=== PATIENT | female | born 1990 | race Caucasian/White ===

== ENCOUNTER 2020-10-31 15:28 | Emergency (ER) | payer SELFPAY ==
[~2020-10-31] VITALS: Ht 170.2 cm; Wt 93.2 kg
[2020-10-31 17:52] LABS: BILIRUBIN,URINE SMALL (NEG); CLARITY,URINE TURBID; NITRITE,URINE NEGATIVE (NEG); PROTEIN,URINE 30 mg/dL (NEG-TRACE)
[2020-10-31 17:57] LABS: COLOR,URINE YELLOW
[2020-10-31 17:58] LABS: BACTERIA,URINE MANY /HPF (0-FEW); WBC,URINE >40 /HPF (0-4)
[2020-10-31 18:01] LABS: YEAST,URINE PRESENT /HPF
--- NOTE | 2020-10-31 18:12 | ED.ADGEN ---
Past Medical History Past Medical History: Anxiety, Depression, Schizophrenia Past Surgical History: No Surgical History Smoking Status: Current Every Day Smoker Alcohol Use: Occasionally Drug Use: None General Adult EDM: Chief Complaint: MULTIPLE COMPLAINTS HPI: HPI: Patient is a 30 year old female who presents to emergency department with complaints of right hand pain after she punched a wall today because she was angry, and foul-smelling vaginal discharge with concerns of a sexually transmitted infection. Patient states that the vaginal discharge and odor began a few weeks ago. She denies any abdominal pain, fever, cough, shortness of breath, nausea, vomiting, diarrhea, constipation, dysuria, hematuria, increased urinary frequency. Patient denies numbness, tingling, weakness or decreased range of motion of the right hand, she is dominantly right-handed. Patient reports a history of schizophrenia, depression, and anxiety. She states that she was upset with her mother that is why she punched a wall. She denies any suicidal or homicidal ideations. She currently rates her pain a 4 out of 10 on the pain scale, she denies any alleviating factors, pain is worse with palpation and movement. Review of Systems: Review of Systems: Complete ROS is negative unless otherwise noted in HPI. Current Medications: Current Medications Medications (Trade) Dose Ordered Sig/Deepika Start Time Stop Time Status Last Admin Dose Admin Ceftriaxone Sodium (Rocephin Im) 500 mg 1X ONCE 10/31/20 18:30 10/31/20 18:31 DC 10/31/20 18:34 500 MG Allergies: Allergies: Allergies Coded Allergies Type Severity Reaction Last Updated Verified Penicillins Allergy Intermediate Unknown 10/31/20 Yes Physical Exam: PE: See Above Constitutional: Well developed, well nourished, no acute distress, non-toxic appearance. HENT: Normocephalic, atraumatic, bilateral external ears normal, nose normal. Eyes: PERRLA, EOMI, conjunctiva normal, no discharge. Neck: Normal range of motion, no stridor. Cardiovascular: Heart rate regular rhythm Lungs & Thorax: Respirations even and unlabored, no retractions, no respiratory distress Pelvic Exam: Toxicologist present Evelina NOVAK Abdomen: Nontender, soft External Genitalia: Normal Skin Speculum: Normal vaginal mucosa, purulent cervical discharge with strawberry appearance, cervix is friable Bimanual: No adnexal masses or tenderness, No CMT Skin: Warm, dry, no erythema, no rash. Extremities: Right hand: Bruising and 1+ edema to lateral aspect of dorsal surface, no crepitus, no obvious deformity, sensation intact, no cyanosis, ROM intact, no edema. Neurologic: Alert and oriented X 3, no focal deficits noted. Psychologic: Affect normal, judgement normal, mood normal. Current Patient Data: Labs: Laboratory Tests Test 10/31/20 17:45 10/31/20 17:49 Urine Collection Type Unknown Urine Color Yellow Urine Clarity Turbid Urine pH 6.0 (<5.0-8.0) Urine Specific [place] 1.025 (1.000-1.030) Urine Protein 30 mg/dL (NEG-TRACE) Urine Glucose (UA) Negative mg/dL (NEG) Urine Ketones (Stick) Trace mg/dL (NEG) Urine Blood Moderate (NEG) Urine Nitrite Negative (NEG) Urine Bilirubin Small (NEG) Urine Urobilinogen Dipstick 1.0 mg/dL (0.2 mg/dL) Urine Leukocyte Esterase Large (NEG) Urine RBC 3-5 /HPF (0-2) Urine WBC >40 /HPF (0-4) Urine Squamous Epithelial Cells Many /LPF Urine Bacteria Many /HPF (0-FEW) Urine Mucus Marked /LPF Urine Yeast Present /HPF POC Urine HCG, Qualitative Hcg negative (Negative) Microbiology 10/31/20 Wet Prep - Final, Complete Vital Signs: Vital Signs Date Time Temp Pulse Resp B/P (MAP) Pulse Ox O2 Delivery O2 Flow Rate FiO2 10/31/20 21:30 84 20 91 Room Air 10/31/20 18:46 116/71 (86) 10/31/20 17:30 97.9 97.9 EKG: EKG: [] Heart Score: C/O Chest Pain: No Radiology/Procedures: Radiology/Procedures: [] Course & Med Decision Making: Course & Med Decision Making Pertinent Labs and Imaging studies reviewed. (See chart for details) 1914-patient eloped from the emergency department without receiving her results or her discharge instructions I called the patient's mother and her emergency contact and left a message that the patient needs to contact the hospital to receive her results. [] Sarah Disclaimer: Sarah Disclaimer: This electronic medical record was generated, in whole or in part, using a voice recognition dictation system. Departure Departure Impression: Primary Impression: Trichomonas vaginitis Additional Impressions: Contact with and (suspected) exposure to infections with a predominantly sexual mode of transmission Right hand pain Disposition: 07 LEFT AWOL/ELOPED Condition: STABLE Problem Qualifiers RADHA NAVARRO APRN Oct 31, 2020 18:12
[2020-10-31] MEDS ORDERED: cefTRIAXone IM 500 MG VIAL. IM ONE (18:30)
[2020-10-31 18:46] VITALS: BP 116/71
--- NOTE | 2020-10-31 22:37 | RAD ---
Exam Date: 10/31/2020 6:30 PM XR HAND_RIGHT 3 VIEWS Indication: Reason: r HAND PAIN AND SWELLING AFTER PUNCHING WALL EARLIER TODAY / Spl. Instructions: / History: . FINDINGS/ IMPRESSION: No acute fracture or dislocation. Alignment and joint spaces are maintained. The soft tissues are w ithin normal limits. Electronically signed by: Mikal Pinedo MD (10/31/2020 10:35 PM) [facility]
[2020-11-02 16:14] LABS: GC PROBE Negative (Negative)
== END 2020-10-31 20:00 | disposition home or self-care (01) ==
LOC: ER 15:28
DX: S60.221A Contusion of right hand, initial encounter (principal); Z20.2 Contact with and (suspected) exposure to infections with a predominantly sexual mode of transmission; A59.01 Trichomonal vulvovaginitis; F20.9 Schizophrenia, unspecified; F41.9 Anxiety disorder, unspecified; F32.9 Major depressive disorder, single episode, unspecified; F17.200 Nicotine dependence, unspecified, uncomplicated; Z88.0 Allergy status to penicillin; W22.01XA Walked into wall, initial encounter; Y93.89 Activity, other specified; Y92.89 Other specified places as the place of occurrence of the external cause; Y99.8 Other external cause status
CPT/HCPCS: 73130; 81001; 81025; 87086; 87491; 87591; 96372; 99285; J0696; Q0111

== ENCOUNTER 2020-11-14 17:45 | Emergency (ER) | payer SELFPAY ==
[~2020-11-14] VITALS: Ht 170.2 cm; Wt 84.0 kg
--- NOTE | 2020-11-14 19:33 | PHYS DOC ---
Past Medical History Past Medical History: Anxiety, Depression, Schizophrenia Past Surgical History: No Surgical History Smoking Status: Current Every Day Smoker Alcohol Use: Occasionally Drug Use: None General Adult EDM: Chief Complaint: TEST HPI: HPI: 30-year-old female presents with report of "possible miscarriage ". Patient reports she missed her menstrual cycle for the last 1 to 2 months. Patient reports she has not taken a test yet. Reports started bleeding yesterday. Reports some mild cramping pain. Denies any fever or chills. Denies other symptoms. Review of Systems: Review of Systems: Constitutional: Denies fever or chills GI: Denies nausea or vomiting /CONTINUOUS MINING OPERATOR: Denies dysuria or hematuria; reports vaginal bleeding Integument: Denies rash or skin lesions Neurologic: Denies headache, focal weakness or sensory changes Complete systems were reviewed and found to be within normal limits, except as documented in this note. Heart Score: C/O Chest Pain: N/A Allergies: Allergies: Allergies Coded Allergies Type Severity Reaction Last Updated Verified Penicillins Allergy Intermediate Unknown 10/31/20 Yes Physical Exam: PE: Constitutional: Well developed, well nourished, no acute distress, non-toxic appearance HENT: Normocephalic, atraumatic Eyes: Conjunctiva normal, no discharge Neck: Normal range of motion, supple Lungs & Thorax: No respiratory distress, equal chest rise and fall Abdomen: Soft, no tenderness, no guarding/rebound tenderness/distention Skin: Warm, dry, no erythema, no rash Extremities: No tenderness, ROM intact, no edema Neurologic: Alert and oriented X 3, no focal deficits noted Psychologic: Affect normal, judgment normal Current Patient Data: Vital Signs: Vital Signs Date Time Temp Pulse Resp B/P (MAP) Pulse Ox O2 Delivery O2 Flow Rate FiO2 11/14/20 18:55 98.4 90 16 134/87 (86) 100 Room Air 98.4 EKG: EKG: [] Radiology/Procedures: Radiology/Procedures: [] Course & Med Decision Making: Course & Med Decision Making Pertinent Lab studies reviewed. (See chart for details) Patient presents with concern for possible miscarriage. Patient reports she has missed a period recently she is unclear whether it has been 1 or 2 months. Denies taking a home test. Patient reports typically her menstrual cycle is very timely. Urine obtained and NEGATIVE. UA also obtained but appears contaminated with menses. Patient stable for discharge with outpatient follow-up with PCP/CONTINUOUS MINING OPERATOR. Discussed findings and plan with patient, who acknowledges understanding and agreement. Sarah Disclaimer: Sarah Disclaimer: This electronic medical record was generated, in whole or in part, using a voice recognition dictation system. Departure Departure Impression: Primary Impression: Feared condition not demonstrated Additional Impression: Vaginal bleeding, abnormal Disposition: HOME / SELF CARE / HOMELESS Condition: STABLE Referrals: NO PCP (PCP) Patient Instructions: Medical Screening Exam, Uterine Bleeding, Dysfunctional, [id number] Additional Instructions: Please follow with a CONTINUOUS MINING OPERATOR if you continue to have abnormal vaginal bleeding. Based on today's testing your test was NEGATIVE. LAXMI GOMEZ DO Nov 14, 2020 19:33
[2020-11-14 19:49] LABS: BILIRUBIN,URINE SMALL (NEG); CLARITY,URINE HAZY; COLOR,URINE YELLOW; NITRITE,URINE NEGATIVE (NEG); PROTEIN,URINE 30 mg/dL (NEG-TRACE); UROBILINOGEN,URINE 0.2 mg/dL (0.2 mg/dL)
[2020-11-14 19:52] LABS: RBC,URINE >40 /HPF (0-2)
[2020-11-14 19:53] LABS: BACTERIA,URINE 0 /HPF (0-FEW)
[2020-11-14 20:30] VITALS: BP 124/82
== END 2020-11-14 20:30 | disposition home or self-care (01) ==
LOC: ER 17:45
DX: Z71.1 Person with feared health complaint in whom no diagnosis is made (principal); N93.9 Abnormal uterine and vaginal bleeding, unspecified; F41.9 Anxiety disorder, unspecified; F32.9 Major depressive disorder, single episode, unspecified; F20.9 Schizophrenia, unspecified; F17.200 Nicotine dependence, unspecified, uncomplicated; Z88.0 Allergy status to penicillin
CPT/HCPCS: 81001; 81025; 99283

== ENCOUNTER 2021-03-16 16:27 | Emergency (ER) | payer SELFPAY ==
[~2021-03-16] VITALS: Ht 167.6 cm; Wt 85.0 kg
--- NOTE | 2021-03-16 16:49 | PHYS DOC ---
Past Medical History Past Medical History: Anxiety, Depression, Schizophrenia Past Surgical History: No Surgical History Smoking Status: Current Every Day Smoker Alcohol Use: Occasionally Drug Use: None General Adult HPI: HPI: Patient is a 30-year-old female that presents today after feeling dizzy and lightheaded bout an hour ago. Patient states she was outside smoking and walk to her apartment which is on the sixth floor and says by the time she got to the [place] to her apartment she was feeling dizzy and lightheaded and had a funny feeling all over with seeing spots and decided to come to the hospital to get checked out. Patient states that last Monday she was placed on 4 new medications for her anxiety depression and schizophrenia was given an injection Risperdal. Patient states she had a couple things to eat today and has had plenty of fluid. 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 Patient although also told the nursing staff she would like an STI check. Review of Systems: Review of Systems: Constitutional: Denies fever or chills. [] Eyes: Denies change in visual acuity. [] HENT: Denies nasal congestion or sore throat. [] Respiratory: Denies cough or shortness of breath. [] Cardiovascular: Denies chest pain or edema. [] GI: Denies abdominal pain, nausea, vomiting, bloody stools or diarrhea. [] : Denies dysuria, denies vaginal bleeding or vaginal discharge [] Musculoskeletal: Denies back pain or joint pain. [] Integument: Denies rash. [] Neurologic: Dizziness and lightheadedness Endocrine: Denies polyuria or polydipsia. [] Lymphatic: Denies swollen glands. [] Psychiatric: Denies depression or anxiety. [] Heart Score: C/O Chest Pain: N/A Risk Factors: Risk Factors: DM, Current or recent (<one month) smoker, HTN, HLP, family history of CAD, obesity. Risk Scores: Score 0 - 3: 2.5% MACE over next 6 weeks - Discharge Home Score 4 - 6: 20.3% MACE over next 6 weeks - Admit for Clinical Observation Score 7 - 10: 72.7% MACE over next 6 weeks - Early Invasive Strategies Current Medications: Prozac Risperdal injection Seroquel Vistaril Allergies: Allergies: Allergies Coded Allergies Type Severity Reaction Last Updated Verified Penicillins Allergy Intermediate Unknown 10/31/20 Yes Physical Exam: PE: Constitutional: Well developed, well nourished, no acute distress, non-toxic appearance. [] HENT: Normocephalic, atraumatic, bilateral external ears normal, oropharynx moist, no oral exudates, nose normal. [] Eyes: PERRLA, EOMI, conjunctiva normal, no discharge. [] Neck: Normal range of motion, no tenderness, supple, no stridor. [] Cardiovascular:Heart rate regular rhythm, no murmur [] Lungs & Thorax: Bilateral breath sounds clear to auscultation [] Abdomen: Bowel sounds normal, soft, no tenderness, no masses, no pulsatile masses. [] Skin: Warm, dry, no erythema, no rash. [] Back: No tenderness, no CVA tenderness. [] Extremities: No tenderness, no cyanosis, no clubbing, ROM intact, no edema. [] Neurologic: Alert and oriented X 3, normal motor function, normal sensory function, no focal deficits noted. [] Psychologic: Affect normal, judgement normal, mood normal. [] Current Patient Data: Labs: Laboratory Tests Test 03/16/21 17:22 White Blood Count 9.9 x10^3/uL Red Blood Count 4.47 x10^6/uL Hemoglobin 13.4 g/dL Hematocrit 39.6 % Mean Corpuscular Volume 89 fL Mean Corpuscular Hemoglobin 30 pg Mean Corpuscular Hemoglobin Concent 34 g/dL Red Cell Distribution Width 13.2 % Platelet Count 276 x10^3/uL Neutrophils (%) (Auto) 78 % Lymphocytes (%) (Auto) 15 % Monocytes (%) (Auto) 7 % Eosinophils (%) (Auto) 0 % Basophils (%) (Auto) 0 % Neutrophils # (Auto) 7.7 x10^3/uL Lymphocytes # (Auto) 1.4 x10^3/uL Monocytes # (Auto) 0.7 x10^3/uL Eosinophils # (Auto) 0.0 x10^3/uL Basophils # (Auto) 0.0 x10^3/uL Urine Collection Type Unknown Urine Color Yellow Urine Clarity Cloudy Urine pH 6.0 Urine Specific [place] <=1.005 Urine Protein Negative mg/dL Urine Glucose (UA) Negative mg/dL Urine Ketones (Stick) 15 mg/dL Urine Blood Negative Urine Nitrite Negative Urine Bilirubin Negative Urine Urobilinogen Dipstick 0.2 mg/dL Urine Leukocyte Esterase Negative Urine RBC 0 /HPF Urine WBC 0 /HPF Urine Squamous Epithelial Cells Few /LPF Urine Bacteria 0 /HPF Urine Mucus Slight /LPF Sodium Level 136 mmol/L Potassium Level 3.8 mmol/L Chloride Level 101 mmol/L Carbon Dioxide Level 26 mmol/L Anion Gap 9 Blood Urea Nitrogen 6 mg/dL Creatinine 0.7 mg/dL Estimated GFR (Cockcroft-Gault) 97.0 Glucose Level 96 mg/dL Calcium Level 8.6 mg/dL Troponin I High Sensitivity < 4 ng/L Urine Opiates Screen Neg Urine Methadone Screen Neg Urine Barbiturates Neg Urine Phencyclidine Screen Neg Urine Amphetamine/Methamphetamine Neg Urine Benzodiazepines Screen Neg Urine Cocaine Screen Neg Urine Cannabinoids Screen Neg Urine Ethyl Alcohol Neg Vital Signs: Vital Signs Date Time Temp Pulse Resp B/P (MAP) Pulse Ox O2 Delivery O2 Flow Rate FiO2 03/16/21 19:27 94 18 168/70 (102) 03/16/21 16:50 97.8 97 14 151/70 (97) 99 Room Air 97.8 Vital Signs Date Time Temp Pulse Resp B/P (MAP) Pulse Ox O2 Delivery O2 Flow Rate FiO2 03/16/21 16:50 97.8 97 14 151/70 (97) 99 Room Air 97.8 EKG: EKG: EKG done at [address] Galloway at 1753 shows sinus rhythm with a HI interval of 164 ms with a QT interval of 416 ms with a rate of 74 no STEMI was noted at this time [] Radiology/Procedures: Radiology/Procedures: [] Course & Med Decision Making: Course & Med Decision Making Pertinent Labs and Imaging studies reviewed. (See chart for details) Patient requesting STI check, patient denies vaginal bleeding and/or vaginal discharge, patient self swab and will send cultures, will not be treated at this time due to lack of symptoms or known exposure Patient states she feels better, reviewed labs with patient and feel it is safe for her to go home. Patient will be given strict instructions to return to the emergency department if she does have a syncopal episode, increased chest pain or chest pain, any shortness of breath or any other issues she may have. She is to continue all of her medications that she was prescribed earlier and to follow-up with the clinic on on the . Sarah Disclaimer: Sarah Disclaimer: This electronic medical record was generated, in whole or in part, using a voice recognition dictation system. Departure Departure Impression: Primary Impression: Near syncope Disposition: 01 HOME / SELF CARE / HOMELESS Condition: STABLE Referrals: NO PCP (PCP) Patient Instructions: Near-Syncope Additional Instructions: Continue your current medications as prescribed by your provider Make sure you eating 3 meals a day and drinking plenty of fluids throughout the day Return to the emergency department for chest pain, shortness of air, or syncopal episode. Follow-up with your primary care provider or one of the clinics with on the brochure that was provided to you in 5 to 7 days if no better AJ JARQUIN APRN Mar 16, 2021 16:49
[2021-03-16 17:30] LABS: BILIRUBIN,URINE NEGATIVE (NEG); CLARITY,URINE CLOUDY; COLOR,URINE YELLOW; NITRITE,URINE NEGATIVE (NEG); PROTEIN,URINE NEGATIVE (NEG-TRACE); UROBILINOGEN,URINE 0.2 mg/dL (0.2 mg/dL)
[2021-03-16 17:34] LABS: BASO % 0 % (0-3); EOS % 0 % (0-3); HEMATOCRIT 39.6 % (36.0-47.0); HEMOGLOBIN 13.4 g/dL (12.0-15.5); LYMPH # 1.4 x10^3/uL (1.0-4.8); LYMPH % 15 % (24-48); MEAN CORPUSCULAR HEMOGLOBIN 30 pg (25-35); MEAN CORPUSCULAR HGB CONC 34 g/dL (31-37); MEAN CORPUSCULAR VOLUME 89 fL (79-100); MONO # 0.7 x10^3/uL (0.0-1.1); MONO % 7 % (0-9); NEUT # 7.7 x10^3/uL (1.8-7.7); NEUT % 78 % (31-73); PLATELET COUNT 276 x10^3/uL (140-400); RED BLOOD COUNT 4.47 x10^6/uL (3.50-5.40); RED CELL DISTRIBUTION WIDTH 13.2 % (11.5-14.5); WHITE BLOOD COUNT 9.9 x10^3/uL (4.0-11.0)
[2021-03-16 17:41] LABS: BARBITURATES NEG (NEG); BENZODIAZEPINES NEG (NEG); CANNABINOIDS NEG (NEG); COCAINE NEG (NEG); METHADONE NEG (NEG); OPIATES NEG (NEG); PHENCYCLIDINE NEG (NEG)
[2021-03-16 17:42] LABS: AMPHETAMINE/METHAMPHETAMINE NEG (NEG); BACTERIA,URINE 0 /HPF (0-FEW); RBC,URINE 0 /HPF (0-2); WBC,URINE 0 /HPF (0-4)
[2021-03-16 17:47] LABS: CALCIUM 8.6 mg/dL (8.5-10.1); CREATININE 0.7 mg/dL (0.6-1.0); POTASSIUM 3.8 mmol/L (3.5-5.1)
--- NOTE | 2021-03-16 18:53 | EKG ---
[facility] [address] [place] [address] Test Date: 2021-03-16 Test Time: 17:46:21 Pat Name: REGINALD KOROMA Department: Room: Gender: F Litigation Paralegal: : 1990 Requested By: AJ JARQUIN Order Number: [id number] Reading MD: Measurements Intervals [place] Rate: 74 P: 58 [place]: 164 QRS: 29 QRSD: 80 T: 4 QT: 416 QTc: 462 Interpretive Statements SINUS RHYTHM T ABNORMALITY IN INFERIOR LEADS ABNORMAL ECG RI6.02 No previous ECG available for comparison
[2021-03-16 19:27] VITALS: BP 168/70
[2021-03-20 01:26] LABS: GC PROBE Negative (Negative)
== END 2021-03-16 19:31 | disposition home or self-care (01) ==
LOC: ER 16:27
DX: R55 Syncope and collapse (principal); F20.9 Schizophrenia, unspecified; F32.9 Major depressive disorder, single episode, unspecified; F41.9 Anxiety disorder, unspecified; F17.200 Nicotine dependence, unspecified, uncomplicated; Z88.0 Allergy status to penicillin
CPT/HCPCS: 36415; 80048; 80307; 81001; 84484; 85025; 87491; 87591; 93005; 99284; Q0111

== ENCOUNTER 2021-04-05 13:00 | Emergency (ER) | payer SELFPAY | END 2021-04-05 16:07 | disposition left against medical advice (07) | LOC: ER 13:00 | DX: R00.2 Palpitations (principal); Z53.21 Procedure and treatment not carried out due to patient leaving prior to being seen by health care provider ==

== ENCOUNTER 2021-06-08 12:49 | Emergency (ER) | payer SELFPAY ==
[~2021-06-08] VITALS: Ht 170.2 cm; Wt 76.0 kg
[2021-06-08 14:20] LABS: BILIRUBIN,URINE NEGATIVE (NEG); CLARITY,URINE CLEAR; COLOR,URINE YELLOW; NITRITE,URINE NEGATIVE (NEG); PROTEIN,URINE NEGATIVE (NEG-TRACE); UROBILINOGEN,URINE 0.2 mg/dL (0.2 mg/dL)
[2021-06-08 14:26] LABS: AMPHETAMINE/METHAMPHETAMINE NEG (NEG); BARBITURATES NEG (NEG); BENZODIAZEPINES NEG (NEG); CANNABINOIDS NEG (NEG); COCAINE NEG (NEG); METHADONE NEG (NEG); OPIATES NEG (NEG); PHENCYCLIDINE NEG (NEG)
[2021-06-08 14:32] LABS: BACTERIA,URINE FEW /HPF (0-FEW); RBC,URINE 0 /HPF (0-2); WBC,URINE 0 /HPF (0-4)
--- NOTE | 2021-06-08 14:45 | PHYS DOC ---
Past Medical History Past Medical History: Alcoholism, Anxiety, Depression, Schizophrenia Past Surgical History: No Surgical History Smoking Status: Current Every Day Smoker Alcohol Use: Heavy Drug Use: None General Adult EDM: Chief Complaint: PSYCH EVALUATION HPI: HPI: Patient is a 30 year old female with history of anxiety, depression, schizophrenia, alcoholism presenting to the ED today to be evaluated for alcohol intoxication. Patient states she has been drinking heavily for a long time. She states she also smokes weed. She states she would like to get help but she is not sure if she is ready to do it now or not. She states she does not feel safe at home but she would not elaborate on her safety concerns, she states she lives at home with the mother who dropped her to the ED. She states sometimes she has thoughts of harming herself by drinking more and smoking more weed. Currently she states she is not suicidal or homicidal. She states her heart is "growling". She states she knows she needs help. Review of Systems: Review of Systems: Constitutional: Denies fever or chills. [] Eyes: Denies change in visual acuity. [] HENT: Denies nasal congestion or sore throat. [] Respiratory: Denies cough or shortness of breath. [] Cardiovascular: Reports heart growling. Denies chest pain or edema. [] GI: Denies abdominal pain, nausea, vomiting, bloody stools or diarrhea. [] : Denies dysuria. [] Musculoskeletal: Denies back pain or joint pain. [] Integument: Denies rash. [] Neurologic: Denies headache, focal weakness or sensory changes. [] Endocrine: Denies polyuria or polydipsia. [] Lymphatic: Denies swollen glands. [] Psychiatric: Reports chronic alcohol use, marijuana use Heart Score: C/O Chest Pain: N/A Risk Factors: Risk Factors: DM, Current or recent (<one month) smoker, HTN, HLP, family history of CAD, obesity. Risk Scores: Score 0 - 3: 2.5% MACE over next 6 weeks - Discharge Home Score 4 - 6: 20.3% MACE over next 6 weeks - Admit for Clinical Observation Score 7 - 10: 72.7% MACE over next 6 weeks - Early Invasive Strategies Current Medications: Current Medications Medications (Trade) Dose Ordered Sig/Deepika Start Time Stop Time Status Last Admin Dose Admin Multivitamins 10 ml/Thiamine HCl 100 mg/Folic Acid 1 mg/Sodium Chloride 1,011.2 ml @ 1,000.088 mls/hr 1X ONCE 06/08/21 15:00 06/08/21 16:00 Allergies: Allergies: Allergies Coded Allergies Type Severity Reaction Last Updated Verified Penicillins Allergy Intermediate Unknown 03/16/21 Yes Physical Exam: PE: Constitutional: Well developed, well nourished, no acute distress, non-toxic appearance. [] HENT: Normocephalic, atraumatic, bilateral external ears normal, oropharynx moist, no oral exudates, nose normal. [] Eyes: PERRLA, EOMI, conjunctiva normal, no discharge. [] Neck: Normal range of motion, no tenderness, supple, no stridor. [] Cardiovascular:Heart rate regular rhythm, no murmur [] Lungs & Thorax: Bilateral breath sounds clear to auscultation [] Abdomen: Bowel sounds normal, soft, no tenderness, no masses, no pulsatile masses. [] Skin: Warm, dry, no erythema, no rash. [] Back: No tenderness, no CVA tenderness. [] Extremities: No tenderness, no cyanosis, no clubbing, ROM intact, no edema. [] Neurologic: Alert and oriented X 3, normal motor function, normal sensory function, no focal deficits noted. [] Psychologic: Affect normal, judgement normal, mood normal. [] Current Patient Data: Labs: Laboratory Tests Test 06/08/21 13:55 06/08/21 13:57 Urine Collection Type Unknown Urine Color Yellow Urine Clarity Clear Urine pH 6.0 (<5.0-8.0) Urine Specific [place] <=1.005 (1.000-1.030) Urine Protein Negative mg/dL (NEG-TRACE) Urine Glucose (UA) Negative mg/dL (NEG) Urine Ketones (Stick) 40 mg/dL (NEG) Urine Blood Negative (NEG) Urine Nitrite Negative (NEG) Urine Bilirubin Negative (NEG) Urine Urobilinogen Dipstick 0.2 mg/dL (0.2 mg/dL) Urine Leukocyte Esterase Negative (NEG) Urine RBC 0 /HPF (0-2) Urine WBC 0 /HPF (0-4) Urine Squamous Epithelial Cells Few /LPF Urine Bacteria Few /HPF (0-FEW) Urine Opiates Screen Neg (NEG) Urine Methadone Screen Neg (NEG) Urine Barbiturates Neg (NEG) Urine Phencyclidine Screen Neg (NEG) Urine Amphetamine/Methamphetamine Neg (NEG) Urine Benzodiazepines Screen Neg (NEG) Urine Cocaine Screen Neg (NEG) Urine Cannabinoids Screen Neg (NEG) Urine Ethyl Alcohol Neg (NEG) POC Urine HCG, Qualitative Hcg negative (Negative) Vital Signs: Vital Signs Date Time Temp Pulse Resp B/P (MAP) Pulse Ox O2 Delivery O2 Flow Rate FiO2 06/08/21 13:15 98.4 100 16 144/92 (109) 99 Room Air 98.4 EKG: EKG: [] Radiology/Procedures: Radiology/Procedures: [] Course & Med Decision Making: Course & Med Decision Making Pertinent Labs and Imaging studies reviewed. (See chart for details) This a 30-year-old female patient presenting to the ED today to be evaluated for alcohol use as well as smoking weed. Patient is not sure if she needs help or not. She states she is not safe at home neither would she elaborate on this. Denies any active suicidal or homicidal ideations but states sometimes she thinks of harming herself by drinking more alcohol and smoking more weed. Denies any chest pain or shortness of breath but reports her heart is growling. UDS negative, UA negative for infection, CBC with a WBC of 11.7, CMP with no acute findings. Patient was given a banana bag in the mail in the ED. Reji from the pat team came and talked to patient and resources were provided Discharge to home Sarah Disclaimer: Sarah Disclaimer: This electronic medical record was generated, in whole or in part, using a voice recognition dictation system. Departure Departure Impression: Primary Impression: Alcohol intoxication Qualified Codes: F10.929 - Alcohol use, unspecified with intoxication, unspecified Disposition: 01 HOME / SELF CARE / HOMELESS Condition: STABLE Referrals: NO PCP (PCP) Follow-up with your own doctor and resources provided in the ED in 1 week Patient Instructions: Alcohol Intoxication Additional Instructions: You were evaluated in the emergency room, please follow-up with resources that were provided to you by Reji from the psychiatrist assessment team. LATOYA PAYNE APRN Jun 08, 2021 14:45
[2021-06-08 14:48] LABS: BASO % 0 % (0-3); EOS % 0 % (0-3); HEMATOCRIT 42.9 % (36.0-47.0); HEMOGLOBIN 14.8 g/dL (12.0-15.5); LYMPH # 1.6 x10^3/uL (1.0-4.8); LYMPH % 14 % (24-48); MEAN CORPUSCULAR HEMOGLOBIN 31 pg (25-35); MEAN CORPUSCULAR HGB CONC 35 g/dL (31-37); MEAN CORPUSCULAR VOLUME 90 fL (79-100); MONO # 0.8 x10^3/uL (0.0-1.1); MONO % 7 % (0-9); NEUT # 9.3 x10^3/uL (1.8-7.7); NEUT % 79 % (31-73); PLATELET COUNT 300 x10^3/uL (140-400); RED BLOOD COUNT 4.76 x10^6/uL (3.50-5.40); RED CELL DISTRIBUTION WIDTH 14.5 % (11.5-14.5); WHITE BLOOD COUNT 11.7 x10^3/uL (4.0-11.0)
[2021-06-08 14:53] VITALS: BP 139/80
[2021-06-08] MEDS ORDERED: MULTIVIT INFUSN,ADULT 4,VIT K 10 ML, THIAMINE INJ 100 MG, FOLIC ACID INJ 1 MG in IV NOR... IV ONE (15:00)
[2021-06-08 15:03] LABS: CALCIUM 9.1 mg/dL (8.5-10.1); CREATININE 0.7 mg/dL (0.6-1.0); POTASSIUM 4.4 mmol/L (3.5-5.1)
[2021-06-08 15:09] LABS: ALBUMIN 4.1 g/dL (3.4-5.0); ALBUMIN/GLOBULIN RATIO 0.9 (1.0-1.7); TOTAL BILIRUBIN 1.4 mg/dL (0.2-1.0); TOTAL PROTEIN 8.6 g/dL (6.4-8.2)
[2021-06-08 15:11] LABS: ACETAMIN < 2 mcg/ml (10-30); ETHANOL < 10 mg/dL (0-10); SALIC 3.3 mg/dL (2.8-20.0)
== END 2021-06-08 17:37 | disposition home or self-care (01) ==
LOC: ER 12:49
DX: F10.229 Alcohol dependence with intoxication, unspecified (principal); Y90.0 Blood alcohol level of less than 20 mg/100 ml; F20.9 Schizophrenia, unspecified; F17.200 Nicotine dependence, unspecified, uncomplicated; F41.9 Anxiety disorder, unspecified; F32.9 Major depressive disorder, single episode, unspecified; Z88.0 Allergy status to penicillin
CPT/HCPCS: 36415; 80053; 80307; 80329; 81001; 81025; 83690; 85025; 96365; 99284; G0480; J3411; J3490; J7030

== ENCOUNTER 2021-07-13 13:54 | Emergency (ER) | payer SELFPAY ==
[~2021-07-13] VITALS: Ht 170.2 cm; Wt 76.8 kg
[2021-07-13] MEDS ORDERED: IV NORMAL SALINE 1000ML BAG 1,000 ML IV ONE (15:45)
--- NOTE | 2021-07-13 15:50 | RAD ---
XR CHEST 1V History: Reason: chest pain / Spl. Instructions: / History: Comparison: None. Findings: No consolidation or pleural effusion. Normal heart size. No pneumothorax. Impression: 1. No acute cardiopulmonary process. Electronically signed by: Geoff Hart DO (07/13/2021 3:47 PM) [id number]
[2021-07-13 16:14] LABS: BASO # 0.1 x10^3/uL (0.0-0.2); BASO % 1 % (0-3); EOS # 0.1 x10^3/uL (0.0-0.7); EOS % 1 % (0-3); HEMOGLOBIN 14.6 g/dL (12.0-15.5); LYMPH # 2.5 x10^3/uL (1.0-4.8); LYMPH % 26 % (24-48); MEAN CORPUSCULAR HEMOGLOBIN 31 pg (25-35); MEAN CORPUSCULAR HGB CONC 35 g/dL (31-37); MEAN CORPUSCULAR VOLUME 90 fL (79-100); MONO # 0.8 x10^3/uL (0.0-1.1); MONO % 8 % (0-9); NEUT # 6.2 x10^3/uL (1.8-7.7); NEUT % 64 % (31-73); PLATELET COUNT 349 x10^3/uL (140-400); RED BLOOD COUNT 4.67 x10^6/uL (3.50-5.40); WHITE BLOOD COUNT 9.8 x10^3/uL (4.0-11.0)
[2021-07-13 16:27] LABS: CALCIUM 9.6 mg/dL (8.5-10.1); CREATININE 0.8 mg/dL (0.6-1.0); GFR 82.6; POTASSIUM 4.3 mmol/L (3.5-5.1)
[2021-07-13 16:33] LABS: ALBUMIN 4.4 g/dL (3.4-5.0); ALBUMIN/GLOBULIN RATIO 1.1 (1.0-1.7); MAGNESIUM 2.2 mg/dL (1.8-2.4); TOTAL BILIRUBIN 1.2 mg/dL (0.2-1.0); TOTAL PROTEIN 8.4 g/dL (6.4-8.2)
[2021-07-13 16:34] LABS: ACETAMIN < 2 mcg/ml (10-30); ETHANOL < 10 mg/dL (0-10); SALIC 0.8 mg/dL (2.8-20.0)
[2021-07-13 16:40] LABS: BACTERIA,URINE MOD /HPF (0-FEW); RBC,URINE 0 /HPF (0-2)
[2021-07-13 16:52] LABS: AMPHETAMINE/METHAMPHETAMINE POS (NEG); BARBITURATES NEG (NEG); BENZODIAZEPINES NEG (NEG); CANNABINOIDS NEG (NEG); COCAINE NEG (NEG); METHADONE NEG (NEG); OPIATES NEG (NEG); PHENCYCLIDINE NEG (NEG)
[2021-07-13 17:29] VITALS: BP 128/68
[2021-07-13] MEDS ORDERED: SULF1TAB24 PO (18:06)
--- NOTE | 2021-07-13 18:06 | PHYS DOC ---
Past Medical History Past Medical History: Alcoholism, Anxiety, Depression, Schizophrenia (LATOYA PAYNE Cherie [employer] OFFICER) Past Surgical History: No Surgical History (LATOYA PAYNE [employer] OFFICER) Smoking Status: Current Every Day Smoker Alcohol Use: Heavy Drug Use: None (LATOYA PAYNE [employer]ER) General Adult EDM: Chief Complaint: ANXIETY/PANIC ATTACK HPI: HPI: Patient is a 31 year old female with history of alcoholism, depression, schizophrenia alcoholism, presenting to the ED today with multiple complaints. Patient states she used meth last night. She states she feels dehydrated and has "the beginning of heart disease". She states she would like some IV fluids and her heart checked. She states she does not typically use meth but yesterday she was in the wrong company and they convinced her to use it. Denies any active chest pain. Of note she was in the ED a couple weeks ago for similar complaints (LATOYA PAYNE Cherie [employer] OFFICER) Review of Systems: Review of Systems: Constitutional: Denies fever or chills. [] Eyes: Denies change in visual acuity. [] HENT: Denies nasal congestion or sore throat. [] Respiratory: Denies cough or shortness of breath. [] Cardiovascular: Reports chest tightness. Denies chest pain or edema. [] GI: Denies abdominal pain, nausea, vomiting, bloody stools or diarrhea. [] : Denies dysuria. [] Musculoskeletal: Denies back pain or joint pain. [] Integument: Denies rash. [] Neurologic: Denies headache, focal weakness or sensory changes. [] Psychiatric: Reports anxiety, using meth [] (LATOYA PAYNE [employer] OFF[employer]ER) Heart Score: C/O Chest Pain: N/A Risk Factors: Risk Factors: DM, Current or recent (<one month) smoker, HTN, HLP, family history of CAD, obesity. Risk Scores: Score 0 - 3: 2.5% MACE over next 6 weeks - Discharge Home Score 4 - 6: 20.3% MACE over next 6 weeks - Admit for Clinical Observation Score 7 - 10: 72.7% MACE over next 6 weeks - Early Invasive Strategies (LATOYA PAYNE Cherie [employer] OFFICER) Current Medications: Current Medications Medications (Trade) Dose Ordered Sig/Deepika Start Time Stop Time Status Last Admin Dose Admin Sodium Chloride 1,000 ml @ 1,000 mls/hr 1X ONCE 07/13/21 15:45 07/13/21 16:44 DC 07/13/21 15:45 1,000 MLS/HR (LATOYA PAYNE [employer] OFF[employer]ER) Allergies: Allergies: Allergies Coded Allergies Type Severity Reaction Last Updated Verified Penicillins Allergy Intermediate Unknown 07/13/21 Yes (LATOYA PAYNE [employer] OFF[employer]ER) Physical Exam: PE: Constitutional: Well developed, well nourished, no acute distress, non-toxic appearance. [] HENT: Normocephalic, atraumatic, bilateral external ears normal, oropharynx moist, no oral exudates, nose normal. [] Eyes: PERRLA, EOMI, conjunctiva normal, no discharge. [] Neck: Normal range of motion, no tenderness, supple, no stridor. [] Cardiovascular:Heart rate regular rhythm, no murmur [] Lungs & Thorax: Bilateral breath sounds clear to auscultation [] Abdomen: Bowel sounds normal, soft, no tenderness, no masses, no pulsatile masses. [] Skin: Warm, dry, no erythema, no rash. [] Back: No tenderness, no CVA tenderness. [] Extremities: No tenderness, no cyanosis, no clubbing, ROM intact, no edema. [] Neurologic: Alert and oriented X 3, normal motor function, normal sensory function, no focal deficits noted. [] Psychologic: Flat affect, pacing around, anxious (LATOYA PAYNE [employer] OFF[employer]ER) Current Patient Data: Labs: Laboratory Tests Test 07/13/21 15:55 White Blood Count 9.8 x10^3/uL (4.0-11.0) Red Blood Count 4.67 x10^6/uL (3.50-5.40) Hemoglobin 14.6 g/dL (12.0-15.5) Hematocrit 42.0 % (36.0-47.0) Mean Corpuscular Volume 90 fL (79-100) Mean Corpuscular Hemoglobin 31 pg (25-35) Mean Corpuscular Hemoglobin Concent 35 g/dL (31-37) Red Cell Distribution Width 13.0 % (11.5-14.5) Platelet Count 349 x10^3/uL (140-400) Neutrophils (%) (Auto) 64 % (31-73) Lymphocytes (%) (Auto) 26 % (24-48) Monocytes (%) (Auto) 8 % (0-9) Eosinophils (%) (Auto) 1 % (0-3) Basophils (%) (Auto) 1 % (0-3) Neutrophils # (Auto) 6.2 x10^3/uL (1.8-7.7) Lymphocytes # (Auto) 2.5 x10^3/uL (1.0-4.8) Monocytes # (Auto) 0.8 x10^3/uL (0.0-1.1) Eosinophils # (Auto) 0.1 x10^3/uL (0.0-0.7) Basophils # (Auto) 0.1 x10^3/uL (0.0-0.2) Urine Collection Type Unknown Urine Color (Auto) Colorless Urine Turbidity Clear Urine pH (Auto) 6.0 (<5.0-8.0) Urine Specific [place] 1.002 (1.000-1.030) Urine Protein (Auto) Negative mg/dL (Negative) Urine Glucose (Auto)(UA) Negative mg/dL (Negative) Urine Ketones (Auto) Trace mg/dL (Negative) Urine Blood (Auto) Negative (Negative) Urine Nitrite Negative (Negative) Urine Bilirubin (Auto) Negative (Negative) Urine Urobilinogen (Auto) Normal mg/dL (Normal) Urine Leukocyte Esterase (Auto) Small (Negative) Urine RBC 0 /HPF (0-2) Urine WBC 5-10 /HPF (0-4) Urine Squamous Epithelial Cells Many /LPF Urine Bacteria Mod /HPF (0-FEW) Sodium Level 135 mmol/L (136-145) L Potassium Level 4.3 mmol/L (3.5-5.1) Chloride Level 100 mmol/L (98-107) Carbon Dioxide Level 26 mmol/L (21-32) Anion Gap 9 (6-14) Blood Urea Nitrogen 5 mg/dL (7-20) L Creatinine 0.8 mg/dL (0.6-1.0) Estimated GFR (Cockcroft-Gault) 82.6 BUN/Creatinine Ratio 6 (6-20) Glucose Level 81 mg/dL (70-99) Calcium Level 9.6 mg/dL (8.5-10.1) Magnesium Level 2.2 mg/dL (1.8-2.4) Total Bilirubin 1.2 mg/dL (0.2-1.0) H Aspartate Amino Transferase (AST) 19 U/L (15-37) Alanine Aminotransferase (ALT) 39 U/L (14-59) Alkaline Phosphatase 66 U/L (46-116) Troponin I High Sensitivity < 4 ng/L (4-50) L NV-Edw-A-Type Natriuretic Peptide 23 pg/mL (0-124) Total Protein 8.4 g/dL (6.4-8.2) H Albumin 4.4 g/dL (3.4-5.0) Albumin/Globulin Ratio 1.1 (1.0-1.7) Salicylates Level 0.8 mg/dL (2.8-20.0) L Salicylate Last Dose Date Unknown Salicylate Last Dose Time Unknown Urine Opiates Screen Neg (NEG) Urine Methadone Screen Neg (NEG) Acetaminophen Level < 2 mcg/ml (10-30) L Acetaminophen Last Dose Date Unknown Acetaminophen Last Dose Time Unknown Urine Barbiturates Neg (NEG) Urine Phencyclidine Screen Neg (NEG) Urine Amphetamine/Methamphetamine Pos (NEG) Urine Benzodiazepines Screen Neg (NEG) Urine Cocaine Screen Neg (NEG) Urine Cannabinoids Screen Neg (NEG) Ethyl Alcohol Level < 10 mg/dL (0-10) Urine Ethyl Alcohol Neg (NEG) Laboratory Tests 07/13/21 15:55 Laboratory Tests 07/13/21 15:55 Vital Signs: Vital Signs Date Time Temp Pulse Resp B/P (MAP) Pulse Ox O2 Delivery O2 Flow Rate FiO2 07/13/21 15:59 86 115/71 (86) 98 Room Air 07/13/21 14:26 98.5 22 98.5 (LATOYA PAYNE [employer] OFFICER) EKG: EK interpreted by Dr. Jang sinus rhythm heart rate 83 no STEMI [] (LATOYA PAYNE [employer] OFFICER) Radiology/Procedures: Radiology/Procedures: []PROCEDURE: PORTABLE CHEST 1V XR CHEST 1V History: Reason: chest pain / Spl. Instructions: / History: Comparison: None. Findings: No consolidation or pleural effusion. Normal heart size. No pneumothorax. Impression: 1. No acute cardiopulmonary process. Electronically signed by: Geoff Hart DO (07/13/2021 3:47 PM) [id number] DICTATED and SIGNED BY: GEOFF HART DO DATE: 07/13/21 8723 (LATOYA PAYNE APRN) Course & Med Decision Making: Course & Med Decision Making Pertinent Labs and Imaging studies reviewed. (See chart for details) This a 31-year-old female patient presenting to the ED today complaining of using meth, anxiety, "heart disease". CBC CMP troponin EKG are negative. Chest x-ray is negative, UDS positive for methamphetamine, patient refused help with drug use. Urine positive for UTI, discharged on Bactrim for 3 days. She was discharged to home. Follow-up with [facility] for drug use. Also encouraged to follow-up with a primary care doctor. Provided sign writer hand to follow-up with (LATOYA PAYNE APRN) Course & Med Decision Making Patients Care and treatment plan provided by ER Nurse Practitioner. I was available for consult. Patient's chart reviewed. (PETROS GUTIERREZ DO) Dragon Disclaimer: Dragon Disclaimer: This electronic medical record was generated, in whole or in part, using a voice recognition dictation system. (LATOYA PAYNE APRN) Departure Departure Impression: Primary Impression: Anxiety Additional Impressions: Methamphetamine use UTI (urinary tract infection) Qualified Codes: N39.0 - Urinary tract infection, site not specified Disposition: HOME / SELF CARE / HOMELESS Condition: STABLE Referrals: NO PCP (PCP) Please follow-up with [facility] SUJATHA SOLIS MD follow up in one week Patient Instructions: Anxiety and Panic Attacks, Methamphetamine Abuse, Complications, Urinary Tract Infection Additional Instructions: You were evaluated in the emergency room. Your cardiac work-up is negative. No indication for heart disease. Consider not using drugs including methamphetamine. Consider getting help from drug use from [facility] Sulfamethoxazole/Trimethoprim (BACTRIM DS TABLET) 1 Each Tablet 1 TAB PO BID for 3 Days, #6 TAB 0 Refills Prov: LATOYA PAYNE APRN 07/13/21 LATOYA PAYNE APRN Jul 13, 2021 18:06 PETROS GUTIERREZ DO Jul 15, 2021 03:47
--- NOTE | 2021-07-14 06:04 | EKG ---
[facility] [address] [place] [address] Test Date: 2021-07-13 Test Time: 14:25:39 Pat Name: REGINALD KOROMA Department: Room: Gender: F Perioperative Educator: : 1990 Requested By: LATOYA PAYNE Order Number: [id number] Reading MD: Reymundo Montanez MD Measurements Intervals [place] Rate: 83 P: 78 DE: 160 QRS: 47 QRSD: 88 T: 47 QT: 382 QTc: 449 Interpretive Statements SINUS RHYTHM Electronically Signed On 07-16-2021 17:58:20 CDT by Reymundo Montanez MD
== END 2021-07-13 18:28 | disposition home or self-care (01) ==
LOC: ER 13:54
DX: F41.9 Anxiety disorder, unspecified (principal); F15.90 Other stimulant use, unspecified, uncomplicated; N39.0 Urinary tract infection, site not specified; F20.9 Schizophrenia, unspecified; F17.200 Nicotine dependence, unspecified, uncomplicated; F10.20 Alcohol dependence, uncomplicated; Y90.9 Presence of alcohol in blood, level not specified; Z88.0 Allergy status to penicillin
CPT/HCPCS: 36415; 71045; 80053; 80307; 80329; 81001; 83735; 83880; 84484; 85025; 87077; 87086; 87186; 93005; 96360; 96361; 99285; G0480; J7030